=== PATIENT | male | born 1995 | race Caucasian/White ===

== ENCOUNTER 2017-03-12 20:57 | Emergency (ER) | payer MEDICAID ==
[2017-03-12] MEDS ORDERED: HYDROcodone/APAP 5-325MG 1 EACH TAB PO STA (21:15)
[2017-03-12 21:17] VITALS: PULSE 70
--- NOTE | 2017-03-12 21:19 | ED ---
Lower Extremity Injury HPI - General Stated Complaint: Knee Injury Time Seen by Provider: 03/12/17 21:08 Source: patient, EMS, RN notes reviewed Mode of arrival: EMS Limitations: no limitations - History of Present Illness Initial Comments: 21-year-old male presents emergency Department with chief complaint of right knee pain. Patient states he was playing softball today and which he started to run to the next base while line drive was hit in he had she stopped immediately because of all was caught. Patient states when he would stop his knee seemed to buckle, give out on oxygen direction and he collapsed down to the ground. He states he felt and heard a pop in his right knee. Patient states that he was unable to bear any weight on it after. Patient states he has severe right knee pain worse with any movement. Patient states she's had no prior injuries to his right knee. Patient denies any numbness or tingling at this time. Denies any hip pain no right foot or ankle pain. - Related Data Home Medications Medication Instructions Recorded Confirmed Albuterol Nebulized [Ventolin 2.5 mg INHALATION RT-Q6H PRN 11/01/15 03/12/17 Nebulized] Fluticasone/Salmeterol [Advair 1 inhalation PO RT-DAILY 03/12/17 03/12/17 250-50 Diskus] Ibuprofen [Motrin] 600 mg PO DAILY PRN 03/12/17 03/12/17 Protien/Caffeine Supplement 1 tab PO DAILY 03/12/17 03/12/17 Previous Rx's Medication Instructions Recorded Hydrocodone/Acetaminophen [[place] 1 tab PO Q6HR PRN #20 tab 03/12/17 5-325] Allergies Allergy/AdvReac Type Severity Reaction Status Date / Time amoxicillin Allergy Unknown Verified 03/12/17 21:21 peanut Allergy Anaphylaxis Verified 03/12/17 21:21 Penicillins Allergy Anaphylaxis Verified 03/12/17 21:21 Review of Systems ROS Statement: Those systems with pertinent positive or pertinent negative responses have been documented in the HPI. ROS Other: All systems not noted in ROS Statement are negative. Past Medical History Past Medical History: Asthma History of Any Multi-Drug Resistant Organisms: None Reported Past Surgical History: Adenoidectomy, Ear Surgery, Tonsillectomy Past Anesthesia/Blood Transfusion Reactions: No Reported Reaction Past Psychological History: No Psychological Hx Reported Smoking Status: Never smoker Past Alcohol Use History: Rare Past Drug Use History: None Reported General Exam General appearance: alert, in no apparent distress Respiratory exam: Present: normal lung sounds bilaterally. Absent: respiratory distress, wheezes, rales, rhonchi, stridor Cardiovascular Exam: Present: regular rate, normal rhythm, normal heart sounds. Absent: systolic murmur, diastolic murmur, rubs, gallop, clicks Extremities exam: Present: other (Right knee there is moderate swelling noted, tenderness with palpation over the anterior surface. Patient has pain with valgus and varus and there is some laxity noted with anterior drawer tests and pain with it. There is no pain or laxity with posterior drawer test right leg is neurovascularly intact with equal pedal pulses..) Course Vital Signs 03/12/17 21:04 Temperature 98.3 F Pulse Rate 70 Respiratory 18 Rate Blood Pressure 136/77 O2 Sat by Pulse 97 Oximetry Medical Decision Making - Medical Decision Making 21-year-old male presents emergency department for right knee pain. Patient has a large joint effusion noted. Patient had most likely ligamentous injury to his right knee ACL. Patient was placed in knee immobilizer at this time. Patient will follow-up with orthopedics associate Dr. Nava has family request. Patient we given pain medication go home with. Patiently placed in crutches at this time. Disposition Clinical Impression: Right knee injury, Derangement of right knee ligament Disposition: HOME SELF-CARE Condition: Stable Instructions: ACL Injury (ED) Additional Instructions: Please return to the Emergency Department if symptoms worsen or any other concerns. Please wear brace and use crutches as directed. Follow-up with orthopedics. Prescriptions: Hydrocodone/Acetaminophen [[place] 5-325] 1 tab PO Q6HR PRN #20 tab PRN Reason: Pain Referrals: None,Stated [Primary Care Provider] - 1-2 days Milo Nava MD [STAFF PHYSICIAN] - 1-2 days Time of Disposition: 21:44
--- NOTE | 2017-03-12 21:38 | XR ---
EXAMINATION TYPE: XR knee complete RT DATE OF EXAM: 03/12/2017 COMPARISON: NONE HISTORY: Knee pain TECHNIQUE: 3 views FINDINGS: I see no fracture nor dislocation. Joint spaces are normal. There is a mild knee joint effu jordan. There is thickening of the cortex of the lateral and posterior distal femur. IMPRESSION: Knee joint effusion. No fracture. Cortical thickening probably related to benign etiology .
[2017-03-12 21:57] VITALS: BP 127/66; RESP 15; TEMP 98.7
== END 2017-03-12 22:17 | disposition home or self-care (01) ==
LOC: EC 20:57
DX: S89.91XA Unspecified injury of right lower leg, initial encounter (principal); J45.909 Unspecified asthma, uncomplicated; Z88.0 Allergy status to penicillin; Z91.010 Allergy to peanuts; Z79.51 Long term (current) use of inhaled steroids; Z79.899 Other long term (current) drug therapy; W21.07XA Struck by softball, initial encounter; Y93.64 Activity, baseball
CPT/HCPCS: 99283

== ENCOUNTER → 2017-03-14 | Outpatient (CLI) | payer MEDICAID ==
--- NOTE | 2017-03-14 17:02 | MR ---
EXAMINATION TYPE: MR knee RT wo con DATE OF EXAM: 03/14/2017 COMPARISON: Plain film 03/12/2017 HISTORY: Pain entire Right Knee with Locking for 2 days after Baseball injury TECHNIQUE: Multiplanar, multisequence imaging of the right knee is performed without IV contrast. FINDINGS: MEDIAL MENISCUS: Linear increased signal is suspected within the body extending to the articular surf ysabel, findings suspicious for a horizontal tear. This is seen best on coronal image location 25.78. Po sterior aspect of the posterior horn of the medial meniscus shows a suspicious focus of increased sig nal which may represent a local tear seen on sagittal image location -71.67. There may be partial men iscocapsular separation. LATERAL MENISCUS: The anterior horn shows stellate increased signal on sagittal image at the insertio n of the anterior meniscal femoral ligament which may be due to strain, similarly at the posterior me niscal femoral ligament insertion there is some irregular signal, the anchor of the posterior horn of the lateral meniscus is remarkable for some abnormal increased signal on T2-weighted sequences sugge stive of strain or partial tear CRUCIATE LIGAMENTS: Anterior cruciate ligament does not show well-defined fibers, extensive fluid sig nal is present, posterior cruciate ligament also shows abnormal increased signal suggestive of strain , partial tear COLLATERAL LIGAMENTS: The medial collateral ligament and lateral collateral ligament complex are inta ct and unremarkable. EXTENSOR MECHANISM: Visualized quadriceps and patellar tendons are intact. EFFUSION: There is a sizable suprapatellar joint effusion, probable hemarthrosis. Fluid signal is pr esent within the musculature around the knee POPLITEAL CYST: No popliteal/ponce cyst. TRICOMPARTMENT SPACES: CARTILAGE: Small osteochondral defect thought present bilaterally at the lateral femoral condyle. BONE MARROW SIGNAL: Subchondral marrow edema is present at the level of the medial tibia posteriorly as well as the lateral femoral condyle, there may be microtrabecular fractures present as well within the proximal tibia posteriorly. OTHER: No additional significant abnormality is appreciated. IMPRESSION: Findings suspicious for tears within the posterior horn of the medial meniscus, body, additional find ings involving the meniscal femoral ligaments. Anterior cruciate ligament disruption. Hemarthrosis. M icrotrabecular tears and possible osteochondral injury as described involving the proximal tibia, lat eral femoral condyle.
== END | disposition home or self-care (01) ==
LOC: RADMRIMAIN 15:09
PROVIDERS: ATTEND Orthopaedic Surgery Sports Medicine
DX: S81.011A Laceration without foreign body, right knee, initial encounter (principal); M25.061 Hemarthrosis, right knee

== ENCOUNTER 2017-04-04 10:49 | Day surgery (SDC) | payer MEDICAID ==
[2017-04-03 12:03] VITALS: BMI 37.2
[~2017-04-04 10:49] MED LIST: DEXAMETHASONE SOD PHOSPHATE 10 MG/ML 1 ML VIAL IV ONE; LACTATED RINGERS 1,000 ML IV SCH; MIDAZOLAM 2 MG/2 ML VIAL IV PRN; ONDANSETRON 4 MG/2 ML VIAL IVP ONE; Pre Op ABX Message 1 EACH MISC MISCELLANE ONE
[2017-04-04] MEDS ORDERED: LIDOCAINE 1% 20 ML VIAL (10MG/ML) FOR IV START INTRADERMA ONE (11:58)
[2017-04-04] MEDS ORDERED: ceFAZolin 2 GM in SODIUM CHLORIDE 0.9% 100 ML IVPB ONE (12:09)
[2017-04-04] MEDS ORDERED: SUCCINYLCHOLINE CHLORIDE VIAL 200 MG/10 ML VIAL IV ONE (12:46)
[2017-04-04] MEDS ORDERED: PROPOFOL 10 MG/ML 20 ML VIAL IV ONE (12:46)
[2017-04-04] MEDS ORDERED: MIDAZOLAM 2 MG/2 ML VIAL ONE (12:46)
[2017-04-04] MEDS ORDERED: NEOSTIGMINE 1 MG/ML 10 ML VIAL ONE (12:46)
[2017-04-04] MEDS ORDERED: LIDOCAINE 1% INJ 10MG/ML (20 ML MDV) ONE (12:46)
[2017-04-04] MEDS ORDERED: ROCURONIUM BROMIDE 10 MG/ML 10 ML VIAL IV ONE (12:46)
[2017-04-04] MEDS ORDERED: GLYCOPYRROLATE 0.2 MG/ML 2 ML VIAL ONE (12:46)
[2017-04-04] MEDS ORDERED: fentaNYL (PF) 50 MCG/ML 2 ML AMP ONE (12:46)
[2017-04-04] MEDS ORDERED: BUPIVACAIN-EPI 0.5%-1:200,000 30 ML VIAL SQ ONE (13:21)
[2017-04-04] MEDS ORDERED: ceFAZolin 1,000 MG in SODIUM CHLORIDE 0.9% 1,000 ML IRRIGATION ONE (13:38)
[2017-04-04] MEDS ORDERED: LACTATED RINGERS 1,000 ML IV ONE ×2 (14:19)
[2017-04-04 15:05] VITALS: TEMP 97.4
--- NOTE | 2017-04-04 15:28 | P.OP ---
Date of Procedure: 04/04/17 Preoperative Diagnosis: #1 right anterior cruciate ligament rupture and #2 right lateral meniscus tear Postoperative Diagnosis: Same Procedure(s) Performed: #1 right anterior cruciate ligament reconstruction with hamstring autograft and #2 right partial lateral meniscectomy Implants: Anesthesia: GETA Surgeon: Milo Nava Seating Upholsterer #1: Judah De La Rosa Estimated Blood Loss (ml): 50 Condition: stable Disposition: PACU Indications for Procedure: Operative Findings: Description of Procedure: Indications: Jerry is a 21-year-old male who injured his right knee playing softball approximately 2 weeks ago. His physical examination and MRI are consistent with a rupture of the right anterior cruciate ligament and a tear of the lateral meniscus. I had a long discussion with him regarding treatment options. At this point he does wish to proceed with operative intervention. Risks were explained the patient which include but are not limited to risk of infection, nerve damage, bleeding, pain, instability, a small risk of deep vein thrombosis which could lead to fatal pulmonary embolism and graft rerupture. The patient understands these risks and wishes to proceed with the surgical procedure. Examination under anesthesia: Range of motion right full left full Effusion right moderate left none Josh right increased 5 mm soft endpoint left normal with a good endpoint Pivot shift right grade 1 left grade 0. Posterior drawer right normal with a firm endpoint left normal with a firm endpoint Varus laxity right none and left none Valgus laxity right none and left none External rotation right normal left normal Arthroscopic findings: suprapatellar pouch is normal medial gutter normal lateral gutter normal patella normal chondral surfaces trochlea normal chondral surfaces patella tracking is normal medial femoral condyle normal chondral surfaces medial tibial plateau normal chondral surfaces medial meniscus normal lateral femoral condyle normal chondral surfaces lateral tibial plateau normal chondral surfaces lateral meniscus complex tear of the posterior horn of the lateral meniscus anterior cruciate ligament complete mid substance rupture of the anterior cruciate ligament posterior cruciate ligament was normal Details of procedure: The patient was identified in the preoperative holding area. The surgical site was marked by both the patient and myself. He was given 2 g of Ancef IV for prophylactic purposes. The patient was transferred to the operative suite and was placed supine on the operative table. A general anesthetic was administered and dosed by the anesthesia department without apparent complication. An examination under anesthesia was then performed of both knees. The findings are as above. A tourniquet was then placed high on the right upper thigh well-padded in preparation for surgery. The patient's right lower extremity was then prepped and draped in a standard sterile fashion. Standard surgical pause was undertaken to confirm the correct site and that appropriate preoperative antibiotics had been given. All staff in the room were in agreement and we proceeded. The knee was then insufflated with 120 mL sterile saline solution. This is done done to gradually distend the joint. A standard inferolateral portal was then made. The 30 arthroscope was then introduced into the suprapatellar pouch. The arthroscopic pump pressure was set at 60 mmHg and maintained at that level throughout the entire case. Next an 18-gauge spinal needle was utilized to localize the medial portal. This portal was then made under direct visualization. Standard diagnostic arthroscopy was performed. The findings are noted above. Attention was then drawn to the lateral compartment knee. He had a complex tear of the posterior horn lateral meniscus. It was a horizontal cleavage type tear with a flap tear component. This tear was deemed irrepairable. The meniscus tear was debrided back to stable tissue utilizing a biter and a synovial shaver. Approximately 50% of the posterior horn and middle body of the lateral meniscus remained intact after the debridement. The anterior and posterior root attachments were carefully inspected and found to be intact. Attention was then focused on the infrapatellar notch. He had a complete midsubstance rupture of the Anterior Cruciate Ligament. This was debrided with a synovial shaver. At this point in time I proceeded with harvesting of the hamstring autograft. The arthroscopic equipment was removed from the knee. The leg was then exsanguinated with an esmarch dressing. The tourniquet was inflated to 250 mmHg. A small longitudinal incision was then made approximately 1.5 Cm medial to the tibial tubercle. Dissection was carried down through the subcutaneous tissues until the sartorius tendon was identified. The sartorius was incised using an L-shaped incision. The sartorius was retracted and the gracilis and semi-tendinosis tendons were identified. These tendons were then tagged with 2-0 Vicryl Sutures. The tendons were then released from their insertion on the tibia and stripped of their soft tissue attachments using a blunt technique as well as using scissors. The tendons were then harvested using a closed tendon stripper. The Tendons Were Then Taken to the Back Table Where Muscle Fibers Were Scraped off of the of the Tendons. The Ends of the Tendons and Then Whipstitch Using #2 or Orthocord suture. The Tendons Then Doubled to Form a 4 Stranded Hamstring Graft. Graft Diameter Is Measured at 8 Mm. A Manager Perioperative Was Critical at this portion of the case As He Provided Adequate Exposure to Safely [place] the Hamstring Tendons. In Addition he completed the Graft Preparation allowing for Decreased Operative Time , Further Enhancing Safety the Procedure. Attention Was Then Returned to the Knee. The Anterior Crucial Ligament was Then Thoroughly Debrided with an arthroScopic Shaver. The [place] ACL Guide Was Then Placed into the Knee with the Tip held Flush against the Lateral Wall of the Notch. The Knee Was Then Brought into Full Extension. the Tibial Guidepin was then Drilled from the Anteromedial Tibia into the Knee. The Knee Was Then Flexed and the pin position Arthroscopically Assessed to insure That it Was in the Proper Position. The Tibial Tunnel Was Then Created Using a Cannulated Reamer equal to the size of the Hamstring Graft Which Was 8 Mm. a Minimal Lateral Wall Notchplasty Was Then Performed Utilizing the Synovial Shaver in a Bur Type Fashion. The Femoral Origin of the Anterior Crucial Ligament Was Clearly Identified. The Femoral Guidepin Was Then Placed at the Center of the Origin with the Planned Back Wall Thickness of 1 Mm. The Femoral Tunnel was Created with a Cannulated Reamer to the Depth of 25 Mm. The Size of the reamer was Again the Same Size as the Hamstring Graft Which Was 8 Mm. Next a 4.5 Mm Cannulated Drill Was Used To Penetrate the Lateral Femoral Cortex. The Biomet Toggle Lock Femoral Fixation Device Was then Opened. The Graft Was Placed through the Closed Loop of the Device. A Beath Pin Was Passed through the Tibial and Femoral Tunnel Tunnels and out through the Soft Tissues of the Lateral Thigh. The Lead Sutures the Fixation Device Were Then Placed in the [place] of the Fixation Device and Advanced through the Tunnels and Soft Tissues of the Lateral Thigh. The Device was Advanced through the Tunnels and Locked on the Lateral Femoral Cortex. The Closed Loop Was Then Shortened the Graft Advanced to the base of the Femoral Tunnel. Femoral Fixation Was Excellent. The Graft Was Then Cycled 30 Times.. No Impingement Was Noted on Intercondylar Roof or Lateral, Wall. Tibial Fixation Was Achieved Using Bioabsorbable Intrafix Screw and Sheath. This was Performed at 20 of Flexion with Posterior Drawer Force Applied the Tibia. This Resulted in Excellent Fixation. The Arthroscope Was Placed Back in the Knee and the Graft Again Visualized. Tension within the Graft was Seen to Be Excellent. No Impingement Was Noted. Full Range Of Motion Was Noted. The Josh Test Was Noted Be Normal. At This Point the arthroscopic equipment was Removed from the Knee. The tourniquet was deflated. The total tourniquet time was 49 minutes at 250 mm Hg. The Tibial Incision Was Thoroughly Irrigated with antibiotic impregnated saline solution. Next the Sartorius Fascia Was Closed with 2-0 Vicryl Interrupted Suture. The Subcutaneous Tissues Closed with 2-0 Vicryl Suture and Skin Was Closed with 3- 0 Nylon Interrupted Suture. the Portals Were Then Closed with 3-0 Nylon Interrupted Suture. Sterile Compressive Dressings were Then Applied. The Patient Was Placed in a Hinged Knee Brace Locked in Full Extension. The Patient Tolerated the Procedure Well and Was Transferred to the Recovery Room in Good Condition. Rehab Plan: Routine Anterior Crucial Ligament Reconstruction Rehab Protocol
[2017-04-04] MEDS: HYDROmorphone 1 MG/ML 1 ML SYRINGE IVP PRN ×2 (15:31→15:50)
[2017-04-04] MEDS ORDERED: MEPERIDINE 50 MG/ML SYRINGE IVP ONE (15:37)
[2017-04-04 16:23] VITALS: RESP 16
[2017-04-04] MEDS ORDERED: HYDROcodone/APAP 7.5-325MG 1 EACH TAB PO ONE ×2 (16:29)
[2017-04-04 17:11] VITALS: PULSE 81
[2017-04-04 17:21] VITALS: BP 138/67
== END 2017-04-04 17:51 | disposition home or self-care (01) ==
LOC: OR 10:49
PROVIDERS: ATTEND Orthopaedic Surgery Sports Medicine
DX: S83.511A Sprain of anterior cruciate ligament of right knee, initial encounter (principal); S83.271A Complex tear of lateral meniscus, current injury, right knee, initial encounter; J45.909 Unspecified asthma, uncomplicated; Y93.79 Activity, other specified sports and athletics; Y92.320 Baseball field as the place of occurrence of the external cause; Z79.51 Long term (current) use of inhaled steroids; Z88.0 Allergy status to penicillin
CPT/HCPCS: 29888; 29881; C1713 ×2; J2250; J0330; J1100; J2710; J2175; J0690 ×2; J2405; J2001; J3010; J1170; J2704

== ENCOUNTER 2020-11-25 14:25 | Emergency (ER) | payer MEDICAID, OTHER ==
[2020-11-25 14:30] VITALS: PULSE 72; TEMP 98.4
--- NOTE | 2020-11-25 14:48 | ED ---
Lower Extremity Injury HPI - General Chief Complaint: Extremity Injury, Lower Stated Complaint: Left Leg injury Time Seen by Provider: 11/25/20 14:33 Source: patient, family, RN notes reviewed Mode of arrival: wheelchair Limitations: no limitations - History of Present Illness Initial Comments: 25-year-old white male well-appearing in no acute distress, presents to the emergency room with left ankle pain. Brought to emergency room by family with concerns for fracture. Patient states he jumped into a hole today felt a pop in his ankle. - Related Data Home Medications Medication Instructions Recorded Confirmed Albuterol Nebulized [Ventolin 2.5 mg INHALATION RT-Q6H PRN 11/01/15 04/04/17 Nebulized] Fluticasone/Salmeterol [Advair 1 inhalation PO HS 03/12/17 04/04/17 250-50 Diskus] Previous Rx's Medication Instructions Recorded Hydrocodone/Acetaminophen [[place] 1 tab PO Q6HR PRN #20 tab 03/12/17 5-325] Aspirin 325 mg PO BID #60 tab 04/04/17 Docusate [Colace] 100 mg PO BID #60 capsule 04/04/17 HYDROcodone/APAP 7.5-325MG [[place] 1 - 2 tab PO Q6HR PRN #60 tab 04/04/17 7.5-325] Allergies Allergy/AdvReac Type Severity Reaction Status Date / Time amoxicillin Allergy Unknown Verified 11/25/20 14:30 peanut Allergy Anaphylaxis Verified 11/25/20 14:30 Penicillins Allergy Anaphylaxis Verified 11/25/20 14:30 Review of Systems ROS Statement: Those systems with pertinent positive or pertinent negative responses have been documented in the HPI. ROS Other: All systems not noted in ROS Statement are negative. Past Medical History Past Medical History: Asthma, Hypertension, Musculoskeletal Disorder Additional Past Medical History / Comment(s): sports injury to right knee- wearing brace currently History of Any Multi-Drug Resistant Organisms: None Reported Past Surgical History: Adenoidectomy, Ear Surgery, Tonsillectomy Past Anesthesia/Blood Transfusion Reactions: No Reported Reaction Past Psychological History: No Psychological Hx Reported Smoking Status: Current some day smoker Past Alcohol Use History: Rare Past Drug Use History: None Reported - Past Family History Mother Family Medical History: No Reported History General Exam Limitations: no limitations General appearance: alert, in no apparent distress Respiratory exam: Present: normal lung sounds bilaterally Cardiovascular Exam: Present: normal heart sounds Left Ankle exam: Present: normal inspection, tenderness (pt with pain with palpation of achilles tendon, tenderness with dorsiflexion but not with inversion or eversion. Pt able to ambulate 4 steps in room, no bony tenderness to lateral or medial malleolus, no tenderness at base of 5h metatarsal) Course Vital Signs 11/25/20 11/25/20 14:27 15:17 Temperature 98.4 F Pulse Rate 72 72 Respiratory 20 18 Rate Blood Pressure 163/104 149/85 O2 Sat by Pulse 97 98 Oximetry Procedures - Orthopedic Splinting/Casting Injury #1 Side: left Lower Extremity Injury Location: short leg, ankle Lower Extremity Immobilizer: posterior splint, stirrup splint, synthetic pre- padded splint Other Orthopedic Equipment: crutches Medical Decision Making - Medical Decision Making x-ray shows fracture of the left distal tibia. patient was splinted with a short posterior mold and stirrup. Directed to take Motrin as needed [id number] for pain. rest, ice and elevate. [facility]. - Radiology Data Interpreted by me: x-ray report of the left ankle shows distal tibial fracture. Patient's splinted short posterior mold with sterile. Referred to orthopedics at where patient has had previous care for right knee. Disposition Clinical Impression: Tibia fracture Disposition: HOME SELF-CARE Condition: Stable Instructions (If sedation given, give patient instructions): Leg Fracture (ED) Additional Instructions: Rest, ice and elevate leg. Wear splint and use crutches. Return if increased pain or worsening. Follow up with ortho this week for continuation of care. Motrin as needed [id number] as directed. Is patient prescribed a controlled substance at d/c from ED?: No Referrals: Ez Negrete MD [Primary Care Provider] - 1-2 days Milo Nava MD [STAFF PHYSICIAN] - 1-2 days Time of Disposition: 16:46
--- NOTE | 2020-11-25 15:12 | XR ---
EXAMINATION TYPE: XR ankle complete LT DATE OF EXAM: 11/25/2020 COMPARISON: none HISTORY: Pain TECHNIQUE: 3 views of the left ankle are submitted for evaluation. FINDINGS: There is no evidence for fracture or dislocation. Ankle mortise is intact. Lateral soft tis forest swelling noted. IMPRESSION: 1. No evidence for acute fracture.
[2020-11-25 15:19] VITALS: BP 149/85; RESP 18
== END 2020-11-25 17:00 | disposition home or self-care (01) ==
LOC: EC 14:25
DX: S82.302A Unspecified fracture of lower end of left tibia, initial encounter for closed fracture (principal); J45.909 Unspecified asthma, uncomplicated; F17.200 Nicotine dependence, unspecified, uncomplicated; Z79.51 Long term (current) use of inhaled steroids; Z88.0 Allergy status to penicillin; Z91.010 Allergy to peanuts; Y93.39 Activity, other involving climbing, rappelling and jumping off; Y92.89 Other specified places as the place of occurrence of the external cause
CPT/HCPCS: 29515; 99283